=== PATIENT | male | born 1975 | race Caucasian/White ===

== ENCOUNTER 2017-04-17 17:32 | Emergency (ER) | payer OTHER ==
[~2017-04-17] VITALS: Ht 190.5 cm; Wt 134.5 kg
[2017-04-17 17:47] VITALS: Ht 190.5 cm; Wt 134.5 kg
[2017-04-17] MEDS ORDERED: FENTANYL CITRATE INJ 50 MCG/1 ML 2 ML VIAL IV ONE (18:30)
--- NOTE | 2017-04-17 18:56 | EMERGENCY ROOM VISIT NOTE ---
History First contact with patient: 18:10 Chief Complaint: INFECTION Stated Complaint: CELLULTIS INFECTION IN RT HAND- PHYSICIAN REFERRED Nursing Triage Summary: Patient states he started with right hand pain and swelling and redness starting yesterday. Seen by PCP and sent for evaluation. Currently on levaquin started yesterday. History of Present Illness The patient is a 41 year old male who presents to the Emergency Room with complaints of right hand swelling, redness, and pain for the past 2 days. Patient states his symptoms started shortly after scraping his hand on a car at work. He spoke on the phone yesterday with his PCP, who started him on Levaquin , he has taken 2 doses of this. He saw his PCP today to be evaluated, who sent him to ED for further evaluation and treatment of his hand cellulitis. Patient reports that his pain and swelling of his right hand have been getting worse since yesterday, started in just the fifth finger over the knuckle and has been spreading over the entire top of the hand. Patient reports history of previous cellulitis in the past, state he is prone to infections due to his diabetes. He is right hand dominant. He denies any fevers or chills, headaches, neck pain , chest pain, shortness of breath, dizziness or syncope, abdominal pain, nausea or vomiting, diarrhea, urinary symptoms, or rash. Review of Systems A complete 10 point review of systems was reviewed with the patient with pertinent positives and negatives as per history of present illness. All else were negative. Past Medical/Surgical History Diabetes mellitus type 2, hypertension, hypercholesterolemia, depression Social History Smoking Status: Never Smoker Drug Use: none Marital Status: Housing Status: lives with significant other Occupation Status: employed Current/Historical Medications Scheduled Clindamycin Hcl (Cleocin), 300 MG PO QID Insulin Glargine (Toujeo Solostar), 40 UNITS SC QPM Lamotrigine (Lamictal), 150 MG PO QAM Levofloxacin (Levaquin), Unknown Dose PO DAILY Lisinopril (Lisinopril), 5 MG PO DAILY Metformin Hcl (Glucophage Ext Rel), 1,000 MG PO BID Sertraline (Zoloft), 50 MG PO QAM Simvastatin (Zocor), 10 MG PO HS Allergies Reviewed in chart Physical Exam Vital Signs Date Time Temp Pulse Resp B/P (MAP) Pulse Ox O2 Delivery O2 Flow Rate FiO2 04/17/17 22:36 84 16 136/92 96 04/17/17 21:59 86 16 142/92 96 Room Air 04/17/17 20:16 36.4 79 16 132/96 96 Room Air 04/17/17 19:04 85 16 137/84 95 Room Air 04/17/17 17:47 36.7 86 16 126/92 96 Room Air Physical Exam CONSTITUTIONAL: Pleasant and cooperative. No acute distress. Nontoxic appearing. Well appearing and well nourished. HEENT: Normocephalic, atraumatic. Pupils equal, round and reactive to light, EOMI. TMs normal. Pharynx normal. Moist mucous membranes. NECK: Supple, full active range of motion without discomfort. RESPIRATORY: Clear to auscultation bilaterally with no wheezing, crackles, rhonchi or stridor. Equal expansion bilaterally. CARDIOVASCULAR: Regular rate and rhythm with no murmurs, rubs or gallops. Normal peripheral perfusion. No edema. GASTROINTESTINAL: Soft, nontender, nondistended. No palpable masses or HSM. Bowel sounds present in all quadrants. MUSCULOSKELETAL: The right hand is erythematous, warm to the touch, tender to palpation, moderately swollen, most significant over the fourth and fifth MCP joints and dorsum of the hand. Mild pain with passive flexion/extension of the fingers. No fluctuance palpable. There is an abrasion over the right fifth knuckle, no drainage noted. Full range of motion of all joints without discomfort. INTEGUMENTARY: No rash or other significant dermatologic conditions noted. NEUROLOGIC: Alert and oriented X 4 with normal affect. Normal speech. No focal neurologic deficits noted. Normal gait observed. Medical Decision & Procedures Laboratory Results 04/17/17 18:45 Red Blood Count 4.78, Mean Corpuscular Volume 87.7, Mean Corpuscular Hemoglobin 30.8, Mean Corpuscular Hemoglobin Concent 35.1, Mean Platelet Volume 10.8, Neutrophils (%) (Auto) 60.1, Lymphocytes (%) (Auto) 27.9, Monocytes (%) (Auto) 10.1, Eosinophils (%) (Auto) 1.1, Basophils (%) (Auto) 0.4, Neutrophils # (Auto ) 3.39, Lymphocytes # (Auto) 1.57, Monocytes # (Auto) 0.57, Eosinophils # (Auto ) 0.06, Basophils # (Auto) 0.02 04/17/17 18:45 Test 04/17/17 18:45 White Blood Count 5.63 K/uL (4.8-10.8) Red Blood Count 4.78 M/uL (4.7-6.1) Hemoglobin 14.7 g/dL (14.0-18.0) Hematocrit 41.9 % (42-52) Mean Corpuscular Volume 87.7 fL (80-100) Mean Corpuscular Hemoglobin 30.8 pg (25-34) Mean Corpuscular Hemoglobin Concent 35.1 g/dl (32-36) Platelet Count 199 K/uL (130-400) Mean Platelet Volume 10.8 fL (7.4-10.4) Neutrophils (%) (Auto) 60.1 % Lymphocytes (%) (Auto) 27.9 % Monocytes (%) (Auto) 10.1 % Eosinophils (%) (Auto) 1.1 % Basophils (%) (Auto) 0.4 % Neutrophils # (Auto) 3.39 K/uL (1.4-6.5) Lymphocytes # (Auto) 1.57 K/uL (1.2-3.4) Monocytes # (Auto) 0.57 K/uL (0.11-0.59) Eosinophils # (Auto) 0.06 K/uL (0-0.5) Basophils # (Auto) 0.02 K/uL (0-0.2) RDW Standard Deviation 40.4 fL (36.4-46.3) RDW Coefficient of Variation 12.5 % (11.5-14.5) Immature Granulocyte % (Auto) 0.4 % Immature Granulocyte # (Auto) 0.02 K/uL (0.00-0.02) Erythrocyte Sedimentation Rate 21 mm/hr (0-14) Anion Gap 8.0 mmol/L (3-11) Est Creatinine Clear Calc Drug Dose 178.8 ml/min Estimated GFR () 129.1 Estimated GFR (Non- 111.4 BUN/Creatinine Ratio 19.0 (10-20) Lactic Acid Level 1.4 mmol/L (0.4-2.0) Calcium Level 9.1 mg/dl (8.5-10.1) Total Bilirubin 0.3 mg/dl (0.2-1) Aspartate Amino Transf (AST/SGOT) 8 U/L (15-37) Alanine Aminotransferase (ALT/SGPT) 26 U/L (12-78) Alkaline Phosphatase 55 U/L (45-117) C-Reactive Protein 0.52 mg/dl (0-0.29) Total Protein 7.5 gm/dl (6.4-8.2) Albumin 3.6 gm/dl (3.4-5.0) Globulin 3.9 gm/dl (2.5-4.0) Albumin/Globulin Ratio 0.9 (0.9-2) Beta-Hydroxybutyric Acid 0.83 mg/dL (0.2-2.81) Medications Administered Medications (Trade) Dose Ordered Sig/Zenia Route Start Time Stop Time Status Last Admin Dose Admin Fentanyl Citrate (Fentanyl Inj) 50 mcg NOW ONCE IV 04/17/17 18:30 04/17/17 18:31 DC 04/17/17 18:45 50 MCG Ampicillin Sodium/ Sulbactam Sodium 3000 mg/Sodium Chloride 108 ml @ 200 mls/hr ONE ONCE IV 04/17/17 20:30 04/17/17 21:02 DC 04/17/17 20:47 200 MLS/HR Acetaminophen/ Hydrocodone Bitart ([place] 5/325 Tab) 1 tab NOW STAT PO 04/17/17 20:25 04/17/17 20:26 DC 04/17/17 20:47 1 TAB Clindamycin HCl (Cleocin Cap) 300 mg NOW STAT PO 04/17/17 22:26 04/17/17 22:28 DC 04/17/17 22:32 300 MG Medical Decision CC: Patient presenting with complaint of right hand cellulitis Interpretation of Labs: No leukocytosis, no anemia, hyperglycemia, no other significant electrolyte abnormalities, normal renal function, normal liver enzymes. Mildly elevated inflammatory markers. Lactic acid within normal limits. Negative serum ketones. Differential Diagnosis: Includes, but not limited to cellulitis, gout, abscess, osteomyelitis, tenosynovitis, among others. Medication Reconciliation: I attest that I have personally reviewed the patient' s current medication list. Vital signs review: I reviewed the patient's vital signs and interpret them as follows: T: Afebrile; BP: Normotensive; HR: Within normal limits; RR: Within normal limits; Pulse Ox: Within normal limits on room air. Blood pressure screening: The patient was found to have normal blood pressure on screening and does not require follow-up for repeat blood pressure check. Summary: Patient was evaluated at bedside, history and physical exam performed. Patient is alert and oriented, in no acute distress and nontoxic appearing, resting comfortably in the stretcher. There is moderate swelling, redness, tenderness and warmth of the right hand, mild abrasion over the right fifth knuckle. There is no streaking, there is no crepitus, neurovascularly intact. Pain with flexion or extension of the fingers. I do not suspect tenosynovitis at this time. Orders were placed at bedside for labs, IV Unasyn, x-ray of the hand to evaluate for osteomyelitis. Patient discussed with Dr. Clinton, who agrees with my assessment and plan. Labs reviewed as above, no significant abnormalities. No evidence of DKA. No concern for severe infection. X-ray of the right hand shows swelling consistent with cellulitis, no evidence of osteomyelitis. I'm concerned that there is not adequate coverage for cellulitis with Levaquin, will add clindamycin for broader coverage, and continue the Levaquin for pseudomonal coverage. Patient reassessed multiple times throughout ED stay, he reports that his hand pain is somewhat improved. He was updated on all results and plan for discharge, and encouraged to follow closely with his primary care provider for ongoing management of his hand cellulitis. Patient was given first dose of clindamycin and an Rx was sent to pharmacy. He was also given strict return precautions should his symptoms worsen, he verbalized understanding. Patient was discharged home in stable condition and inability. Impression Primary Impression: Cellulitis of right hand Departure Information Dispostion Home / Self-Care Condition GOOD Prescriptions Clindamycin Hcl (CLEOCIN) 300 Mg Cap 300 MG PO QID for 10 Days, #40 CAP Prov: Medina Connor CRNP 04/17/17 Referrals Matthias Gaytan PA-C (PCP) Patient Instructions ED Infec Skin Cellulitis, My [facility] Additional Instructions You were seen in the Emergency Department for cellulitis of your right hand. You have been prescribed clindamycin to be taken 4 times a day for 10 days. This is an antibiotic to treat your infection. All antibiotics have the potential to cause diarrhea/stomach upset, you should eat yogurt daily or take a daily probiotic to help prevent this. Stop this medication and contact a medical provider if you were to develop any significant adverse side effects including: wheezing, shortness of breath, passing out, vomiting, or a diffuse rash. Always take antibiotics as directed and COMPLETE the ENTIRE course regardless of the improvement of your symptoms. Continue your prescribed Levaquin as directed by her primary care provider until the course is complete. Look for signs of worsening infection of the wound including: increased pain, redness, swelling, foul discharge, streaking, or fevers/chills/feeling ill. If any of these are noticed you should return to the Emergency Department for further assessment and treatment. For pain control, you can use the following [id number] medicines (if >12 yo): - Extra strength (500mg/tab) Tylenol (acetaminophen) 1-2 tabs every 6-8 hours as needed. Do not exceed 6 tablets in a 24 hour period. Avoid taking more than 3 grams (3000 mg) of Tylenol per day. This includes any other sources of acetaminophen you may take on a regular basis. - Regular strength (200 mg/tab) Advil (ibuprofen) 3 tabs every 6 hours as needed. Do not exceed a dose of 2400 mg per day. Apply warm compresses to the area to help with pain and also to help improve the infection. Follow up with your PCP in 1-2 days for recheck, or sooner for worsening symptoms. Return to the emergency department if your symptoms worsen despite treatment course outlined above. Work Instructions Return To Work: 2 days
--- NOTE | 2017-04-17 18:58 | DIAGNOSTIC IMAGING REPORT ---
R HAND MIN 3 VIEWS ROUTINE CLINICAL HISTORY: right hand cellulitis, eval osteo pain. Infection. COMPARISON: None. DISCUSSION: Considerable soft tissue edematous change dorsal and dorsal lateral to the metacarpals and proximal phalanges. No acute bony abnormality. Cortical margins are intact. There is no bony erosive process. IMPRESSION: Soft tissue edema. No acute bony abnormality. The above report was generated using voice recognition software. It may contain grammatical, syntax or spelling errors. Electronically signed by: Des Maxwell M.D. 04/17/2017 6:57 PM Dictated Date/Time: 04/17/2017 6:56 PM
[2017-04-17 19:21] LABS: ALBUMIN 3.6 gm/dl (3.4-5.0); CALCIUM 9.1 mg/dl (8.5-10.1); CREATININE 0.82 mg/dl (0.60-1.40)
[2017-04-17 19:23] LABS: BASO % 0.4 %; BASO ABS # 0.02 K/uL (0-0.2); EOS % 1.1 %; EOS ABS # 0.06 K/uL (0-0.5); HEMATOCRIT 41.9 % (42-52); HEMOGLOBIN 14.7 g/dL (14.0-18.0); IG# 0.02 K/uL (0.00-0.02); LYMPH % 27.9 %; LYMPH ABS # 1.57 K/uL (1.2-3.4); MEAN CELL VOLUME 87.7 fL (80-100); MEAN CORPUSCULAR HEMOGLOBIN 30.8 pg (25-34); MEAN CORPUSCULAR HGB CONC 35.1 g/dl (32-36); MEAN PLATELET VOLUME 10.8 fL (7.4-10.4); MONO % 10.1 %; MONO ABS # 0.57 K/uL (0.11-0.59); NEUT % 60.1 %; NEUT ABS # 3.39 K/uL (1.4-6.5); PLATELET COUNT 199 K/uL (130-400); RED CELL DISTRIBUTION WIDTH CV 12.5 % (11.5-14.5); RED CELL DISTRIBUTION WIDTH SD 40.4 fL (36.4-46.3); WHITE BLOOD COUNT 5.63 K/uL (4.8-10.8)
[2017-04-17 19:24] LABS: TOTAL PROTEIN 7.5 gm/dl (6.4-8.2)
[2017-04-17 20:16] VITALS: TEMP 36.4
[2017-04-17] MEDS ORDERED: HYDROCODONE/ACETAMOPHEN 5/325MG TAB PO STA (20:25)
[2017-04-17] MEDS ORDERED: CLIN300C2 PO (20:25)
[2017-04-17] MEDS ORDERED: AMPICILLIN/SULBACTAM SOD INJ 3,000 MG in SODIUM CHLORIDE 0.9% 100ML 100 ML IV ONE (20:30)
[2017-04-17] MEDS ORDERED: CLINDAMYCIN HCL 150 MG CAP PO STA (22:26)
[2017-04-17 22:36] VITALS: BP 136/92; PULSE 84; O2SAT 96
[2017-04-20] MEDS ORDERED: METF1TAB53 PO (18:35)
[2017-04-20] MEDS ORDERED: LSN5 PO (18:35)
[2017-04-20] MEDS ORDERED: INSU1.2I SC (18:35)
[2017-04-20] MEDS ORDERED: SIMV10TA2 PO (18:35)
[2017-04-20] MEDS ORDERED: LEVO-366 PO (18:35)
[2017-04-20] MEDS ORDERED: LAMO150T PO (18:40)
[2017-04-20] MEDS ORDERED: SERT50TA PO (18:40)
== END 2017-04-17 22:35 | disposition home or self-care (01) ==
LOC: C.EDB 17:34 → C.EDC 22:35
DX: L03.113 Cellulitis of right upper limb (principal); E11.9 Type 2 diabetes mellitus without complications; I10 Essential (primary) hypertension; E78.00 Pure hypercholesterolemia, unspecified; F32.9 Major depressive disorder, single episode, unspecified; Z79.4 Long term (current) use of insulin; Z79.899 Other long term (current) drug therapy

== ENCOUNTER 2017-04-20 22:05 | Inpatient (IN) | payer OTHER ==
[~2017-04-20] VITALS: Ht 190.5 cm; Wt 134.4 kg
[~2017-04-20 22:05] MED LIST: CLIN300C2 PO; INSU1.2I SC; LAMO150T PO; LEVO-366 PO; LSN5 PO; METF1TAB53 PO; SERT50TA PO; SIMV10TA2 PO
[2017-04-20] MEDS ORDERED: VANCOMYCIN INJ 1,000 MG in SODIUM CHLORIDE 0.9% 250ML 250 ML IV STA (22:33)
[2017-04-20] MEDS ORDERED: SODIUM CHLORIDE 0.9% 1000ML 1,000 ML IV ONE (22:45)
[2017-04-20 23:17] LABS: BASO % 0.3 %; BASO ABS # 0.02 K/uL (0-0.2); EOS % 0.9 %; EOS ABS # 0.06 K/uL (0-0.5); HEMATOCRIT 38.7 % (42-52); HEMOGLOBIN 13.6 g/dL (14.0-18.0); IG# 0.03 K/uL (0.00-0.02); LYMPH % 30.9 %; LYMPH ABS # 2.01 K/uL (1.2-3.4); MEAN CELL VOLUME 86.8 fL (80-100); MEAN CORPUSCULAR HEMOGLOBIN 30.5 pg (25-34); MEAN CORPUSCULAR HGB CONC 35.1 g/dl (32-36); MEAN PLATELET VOLUME 10.3 fL (7.4-10.4); MONO % 9.4 %; MONO ABS # 0.61 K/uL (0.11-0.59); NEUT ABS # 3.78 K/uL (1.4-6.5); PLATELET COUNT 196 K/uL (130-400); RED CELL DISTRIBUTION WIDTH CV 12.3 % (11.5-14.5); RED CELL DISTRIBUTION WIDTH SD 39.2 fL (36.4-46.3); WHITE BLOOD COUNT 6.51 K/uL (4.8-10.8)
[2017-04-20] MEDS ORDERED: KETOROLAC TROMETHAMINE 30 MG/ML VIAL IV STA (23:19)
[2017-04-20] MEDS ORDERED: HYDROmorphone INJ 0.5 MG/0.5 ML SYR IV STA (23:28)
[2017-04-20] MEDS ORDERED: MoRPHine SULFATE 4 MG/ML 1 ML CARP\\VIAL IV ONE (23:30)
[2017-04-20 23:34] LABS: ALBUMIN 3.3 gm/dl (3.4-5.0); CALCIUM 8.9 mg/dl (8.5-10.1); CREATININE 0.74 mg/dl (0.60-1.40); POTASSIUM 3.9 mmol/L (3.5-5.1)
[2017-04-20 23:37] LABS: TOTAL PROTEIN 7.1 gm/dl (6.4-8.2)
[2017-04-21] MEDS ORDERED: INSULIN ASPART 100 UNITS/ML 3 ML PEN SC ONE (01:30)
[2017-04-21] MEDS ORDERED: MAGNESIUM HYDROXIDE SUSP 30 ML UDC PO PRN (01:30)
[2017-04-21] MEDS ORDERED: ONDANSETRON INJ 2 MG/ML 2 ML VIAL IV PRN (01:30)
[2017-04-21] MEDS ORDERED: ACETAMINOPHEN 325 MG TAB PO PRN (01:30)
[2017-04-21] MEDS ORDERED: ALUMINUM/MAGNESIUM/SIMETH (MAALOX MAX) 30 ML UDC PO PRN (01:30)
[2017-04-21] MEDS ORDERED: ACETAMINOPHEN IV 650 MG in EMPTY BAG 0 ML IV PRN (01:30)
[2017-04-21] MEDS ORDERED: OXYCODONE HCL IR 5 MG TAB (IMMEDIATE RELEASE) PO PRN (01:30)
[2017-04-21] MEDS ORDERED: ZOLPIDEM TARTRATE 5 MG TAB PO PRN (01:30)
[2017-04-21] MEDS ORDERED: POLYETHYLENE (MIRALAX) 17 GM PACK PO PRN (01:30)
--- NOTE | 2017-04-21 02:02 | History and Physical ---
History & Physical Date & Time of Service: Apr 21, 2017 at 01:45 Chief Complaint: Cellulitis R Hand, Revisit From Th Night Primary Care Physician: Maryuri Doctor, Assigned History of Present Illness Source: patient, hospital records This is a 41 yo m with poorly controlled DM ( diagnosed in 1999 after suffering from DKA) presenting to us with possibly worsening cellulitis. The patient notes he had a scratch on his right fifth knuckle which he "wouldn't leave alone ". He then noticed worsening pain and swelling over the fifth and fourth knuckles which worsened over a 48 hour period. He called his physician which empirically placed him on levaquin and he followed up with the PCP the following day. As there was significant cellulitis and concern for osteomyelitis the patient was recommended for direct by PCP but refused and went to ED for evaluation. He received a dose of unasyn and was d/c with continued Levaquin and added Clindamycin. This ED visit was 04/17/16. Today the patient notes he has had progressive worsening of the erythema where it is now extending to the volar aspect of the wrist and making it difficult to close his hand in a fist. The pain is currently a 5/10 and an ache. Non radiating. No chest pain, SOB, fever, polyuria or polydipsia. Recently had an A1C which was 11.3%. He refused morphine and Toradol in the ED stating that it was "not enough to cover my pain, can't you create a new concoction," to the RN. 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) Immunizations History of Influenza Vaccine: Unknown History of Tetanus Vaccine?: Unknown History of Pneumococcal: Unknown History of Hepatitis B Vaccine: Unknown Multi-Drug Resistant Organisms History of MDRO: No Allergies Coded Allergies: Cephalexin (Verified Allergy, Unknown, HAPPENED A CHILD, 04/17/17) Home Medications Scheduled Clindamycin Hcl (Cleocin), 300 MG PO QID Insulin Glargine (Toujeo Solostar), 40 UNITS SC QPM Lamotrigine (Lamictal), 150 MG PO QAM Levofloxacin (Levaquin), 1 TAB PO DAILY Lisinopril (Lisinopril), 5 MG PO DAILY Metformin Hcl (Glucophage Ext Rel), 1,000 MG PO BID Sertraline (Zoloft), 50 MG PO QAM Simvastatin (Zocor), 10 MG PO HS Review of Systems Constitutional: No fever Eyes: No worsening of vision ENT: No hearing loss Respiratory: No cough, No sputum, No wheezing, No shortness of breath, No dyspnea on exertion, No dyspnea at rest Cardiovascular: No chest pain Abdomen: + diarrhea, No pain, No nausea, No vomiting, No constipation Musculoskeletal: + joint pain, + muscle pain, + swelling Genitourinary - Male: No hematuria, No dysuria Neurologic: No weakness, No numbness/tingling, No balance problems Psychiatric: No depression symptoms Endocrine: No fatigue Hematologic / Lymphatic: No abnormal bleeding/bruising Integumentary: No rash Physical Exam Vital Signs Date Time Temp Pulse Resp B/P (MAP) Pulse Ox O2 Delivery O2 Flow Rate FiO2 04/21/17 01:40 87 18 113/74 96 Room Air 04/20/17 22:08 36.7 103 19 149/101 96 Room Air General Appearance: no apparent distress Head: normocephalic, atraumatic Eyes: normal inspection ENT: normal ENT inspection, + pertinent finding (poor dentition) Neck: supple Respiratory/Chest: normal breath sounds, no respiratory distress, no accessory muscle use Cardiovascular: regular rate, rhythm, no murmur, normal peripheral pulses Abdomen/GI: normal bowel sounds, non tender, soft Back: normal inspection, no CVA tenderness, normal range of motion Extremities/Musculoskelatal: no calf tenderness, no pedal edema, normal range of motion (except for limited ROM of right wrist and hand secondary to swelling) , + swelling (right volar aspect of the hand and extends to the right volar wrist) Neurologic/Psych: alert, normal mood/affect, normal reflexes, oriented x 3 Skin: normal color, warm/dry, no rash Lymphatic: no adenopathy Diagnostics Laboratory Results Results Past 24 Hours Test 04/20/17 23:00 04/20/17 23:02 Range/Units White Blood Count 6.51 4.8-10.8 K/uL Red Blood Count 4.46 4.7-6.1 M/uL Hemoglobin 13.6 14.0-18.0 g/dL Hematocrit 38.7 42-52 % Mean Corpuscular Volume 86.8 80-100 fL Mean Corpuscular Hemoglobin 30.5 25-34 pg Mean Corpuscular Hemoglobin Concent 35.1 32-36 g/dl Platelet Count 196 130-400 K/uL Mean Platelet Volume 10.3 7.4-10.4 fL Neutrophils (%) (Auto) 58.0 % Lymphocytes (%) (Auto) 30.9 % Monocytes (%) (Auto) 9.4 % Eosinophils (%) (Auto) 0.9 % Basophils (%) (Auto) 0.3 % Neutrophils # (Auto) 3.78 1.4-6.5 K/uL Lymphocytes # (Auto) 2.01 1.2-3.4 K/uL Monocytes # (Auto) 0.61 0.11-0.59 K/uL Eosinophils # (Auto) 0.06 0-0.5 K/uL Basophils # (Auto) 0.02 0-0.2 K/uL RDW Standard Deviation 39.2 36.4-46.3 fL RDW Coefficient of Variation 12.3 11.5-14.5 % Immature Granulocyte % (Auto) 0.5 % Immature Granulocyte # (Auto) 0.03 0.00-0.02 K/uL Sodium Level 132 136-145 mmol/L Potassium Level 3.9 3.5-5.1 mmol/L Chloride Level 101 98-107 mmol/L Carbon Dioxide Level 24 21-32 mmol/L Anion Gap 8.0 3-11 mmol/L Blood Urea Nitrogen 14 7-18 mg/dl Creatinine 0.74 0.60-1.40 mg/dl Est Creatinine Clear Calc Drug Dose 198.0 ml/min Estimated GFR () 134.7 Estimated GFR (Non- 116.2 BUN/Creatinine Ratio 19.0 10-20 Random Glucose 348 70-99 mg/dl Uric Acid 3.0 2.6-7.2 mg/dl Calcium Level 8.9 8.5-10.1 mg/dl Total Bilirubin 0.2 0.2-1 mg/dl Aspartate Amino Transf (AST/SGOT) 8 15-37 U/L Alanine Aminotransferase (ALT/SGPT) 26 12-78 U/L Alkaline Phosphatase 58 45-117 U/L C-Reactive Protein 0.61 0-0.29 mg/dl Total Protein 7.1 6.4-8.2 gm/dl Albumin 3.3 3.4-5.0 gm/dl Globulin 3.8 2.5-4.0 gm/dl Albumin/Globulin Ratio 0.9 0.9-2 Beta-Hydroxybutyric Acid 0.68 0.2-2.81 mg/dL Bedside Lactic Acid Venous 1.65 0.90-1.70 mmol/L Microbiology Results 04/20/17 Blood Culture, Received Pending 04/20/17 Blood Culture, Received Pending Impression Assessment and Plan This is a 41 yo m with a h/o poorly controlled DM here for failure of outpt mx of cellulitis of right hand Cellulitis of right hand/ wrist- possible gout? vs infectious process - Zosyn and vanco cont - med surg admission - CBC in am - Blood cx pending - uric acid pending however will defer aspiration of joint at this time - pain control with hydrocodone q6h and tylenol Diarrhea/ new onset after abx - c diff pending DMII, poorly controlled - HBA1C - Dm education consult- discuss potential candidate for pump- GIL? - Lantus 40 units PM - insulin ISS BSG Ac HS - metformin held Hyperlipidemia - Continue Simvastatin 10 mg daily - FLP HTN - Continue Lisinopril 5 mg daily Bipolar disorder - continue zoloft 50 mg and lamotrigine 150 gm daily DVT Prophylaxis - heparin bid full code Attending addendum: I have physically seen this patient, have supervised the medical residents activities, and agree with the H&P unless as otherwise noted. Assessment and Plan: Right hand cellulitis/failure of outpatient management-- Admitted to medical surgical floor. Vancomycin IV and Zosyn IV X-ray is not suggestive of osteomyelitis or erosive arthritis Blood cultures pending Uric acid level Tylenol for mild pain or temperature, [place] for moderate severe pain Diarrhea/antibiotic use-- Check C. difficile Add probiotics Diabetes mellitus, poorly controlled-- Check hemoglobin A1c Continue Lantus 40 units subcutaneous every evening Place on Accu-Cheks before meals and at bedtime with NovoLog coverage per scale Hold metformin Hyperlipidemia-- Continue simvastatin 10 mg daily Check a fasting lipid panel Level of Care Med/Surg Advanced Directives Existing Advance Directive: No Existing Living Will: No Existing Power of Steward/Stewardess Deck: No Resuscitation Status FULL RESUSCITATION VTE Prophylaxis VTE Risk Assessment Done? Y/N: Yes Risk Level: Moderate Given or contraindicated: Unfractionated heparin SQ Social Service Consult None Apply Note Total Time: Critical Care 30 - 74 minutes
[2017-04-21] MEDS ORDERED: PIPERACILL/TAZOBAC IV 4.5 GM in DEXTROSE 5% 100ML IV ONE (03:00)
[2017-04-21] MEDS: HYDROCODONE/ACETAMI 10/325 TAB PO PRN ×4 (03:02→21:30)
[2017-04-21] MEDS ORDERED: IV FLUIDS COMPLETED PRN (04:00)
[2017-04-21] MEDS ORDERED: VANCOMYCIN INJ 2,250 MG in SODIUM CHLORIDE 0.9% 500ML 500 ML IV SCH (04:00)
[2017-04-21 04:04] VITALS: BP 136/89; PULSE 74; TEMP 36.8; O2SAT 97; BMI 37.0
[2017-04-21] MEDS: INSULIN ASPART 100 UNITS/ML 3 ML PEN SC SCH ×5 (04:24→21:22)
[2017-04-21] MEDS ORDERED: PIPERACILL/TAZOBAC IV 3.375 GM in DEXTROSE 5% 100ML 100 ML IV SCH (06:00)
--- NOTE | 2017-04-21 06:32 | DIAGNOSTIC IMAGING REPORT ---
R HAND MIN 3 VIEWS ROUTINE CLINICAL HISTORY: right hand infx trauma. Pain. COMPARISON: 04/17/2017 DISCUSSION: Soft tissue edema is similar compared to the prior study. No well-defined acute bony abnormality. Cortical margins are intact. IMPRESSION: Persistent soft tissue edema. No acute bony abnormality. The above report was generated using voice recognition software. It may contain grammatical, syntax or spelling errors. Electronically signed by: Des Maxwell M.D. 04/21/2017 6:30 AM Dictated Date/Time: 04/21/2017 6:29 AM
[2017-04-21 07:19] VITALS: BP 128/82; PULSE 70; TEMP 36.7; O2SAT 97
--- NOTE | 2017-04-21 08:06 | Family Medicine Progress Note ---
Progress Note Date of Service Apr 21, 2017. Subjective Pt evaluation today including: conversation w/ patient, conversation w/ family , physical exam, chart review, lab review, review of studies, conversation w/ senior professional services consultant, review of inpatient medication list Patient well, denies acute overnight events. Complaining of ongoing tenderness and tingling in the 4th and 5th knuckles of the right hand as well pain in the right wrist. He states there was never a significant amount of redness, and he hasn't noted any discharge. He admits he has had Cellulitis in the past, but has never experienced tingling. He states his sugars are managed by his PCP, and has never seen an sign language interpreter. He states compliance with his meds. He otherwise denies fevers/chills, headaches, CP, palpitations, dyspnea, abdominal pain, hand swelling or rashes. He is tolerating diet, ambulating without issue, and voiding and stooling appropriately. ROS is unremarkable except as noted above. Objective Vital Signs Date Time Temp Pulse Resp B/P (MAP) Pulse Ox O2 Delivery O2 Flow Rate FiO2 04/21/17 07:19 36.7 70 17 128/82 (97) 97 Room Air 04/21/17 04:44 Room Air 04/21/17 04:04 36.8 74 16 136/89 97 Room Air 04/21/17 01:40 87 18 113/74 96 Room Air 04/20/17 22:08 36.7 103 19 149/101 96 Room Air Physical Exam General Appearance: WD/WN, no apparent distress Eyes: normal inspection ENT: hearing grossly normal Respiratory/Chest: lungs clear, normal breath sounds, no respiratory distress, no accessory muscle use Cardiovascular: regular rate, rhythm, no edema, no murmur Abdomen: normal bowel sounds, non tender, soft Extremities: non-tender, normal inspection, no pedal edema, + pertinent finding (tenderness of 4th and 5th MCP and right wrist. Inability to flex right ring and pinky finger fully. Pain on wrist flexion.) Neurologic/Psychiatric: no motor/sensory deficits, alert, normal mood/affect, oriented x 3 Skin: normal color, warm/dry, no rash, + pertinent finding (Scabs on right 5th MCp, no significant erythema, premarked border devoid of swelling or discolouration.) Laboratory Results Results Past 24 Hours Test 04/20/17 23:00 04/20/17 23:02 04/21/17 02:41 04/21/17 05:26 Range/Units White Blood Count 6.51 4.8-10.8 K/uL Red Blood Count 4.46 4.7-6.1 M/uL Hemoglobin 13.6 14.0-18.0 g/dL Hematocrit 38.7 42-52 % Mean Corpuscular Volume 86.8 80-100 fL Mean Corpuscular Hemoglobin 30.5 25-34 pg Mean Corpuscular Hemoglobin Concent 35.1 32-36 g/dl Platelet Count 196 130-400 K/uL Mean Platelet Volume 10.3 7.4-10.4 fL Neutrophils (%) (Auto) 58.0 % Lymphocytes (%) (Auto) 30.9 % Monocytes (%) (Auto) 9.4 % Eosinophils (%) (Auto) 0.9 % Basophils (%) (Auto) 0.3 % Neutrophils # (Auto) 3.78 1.4-6.5 K/uL Lymphocytes # (Auto) 2.01 1.2-3.4 K/uL Monocytes # (Auto) 0.61 0.11-0.59 K/uL Eosinophils # (Auto) 0.06 0-0.5 K/uL Basophils # (Auto) 0.02 0-0.2 K/uL RDW Standard Deviation 39.2 36.4-46.3 fL RDW Coefficient of Variation 12.3 11.5-14.5 % Immature Granulocyte % (Auto) 0.5 % Immature Granulocyte # (Auto) 0.03 0.00-0.02 K/uL Sodium Level 132 136-145 mmol/L Potassium Level 3.9 3.5-5.1 mmol/L Chloride Level 101 98-107 mmol/L Carbon Dioxide Level 24 21-32 mmol/L Anion Gap 8.0 3-11 mmol/L Blood Urea Nitrogen 14 7-18 mg/dl Creatinine 0.74 0.60-1.40 mg/dl Est Creatinine Clear Calc Drug Dose 198.0 ml/min Estimated GFR () 134.7 Estimated GFR (Non- 116.2 BUN/Creatinine Ratio 19.0 10-20 Random Glucose 348 70-99 mg/dl Uric Acid 3.0 2.6-7.2 mg/dl Calcium Level 8.9 8.5-10.1 mg/dl Total Bilirubin 0.2 0.2-1 mg/dl Aspartate Amino Transf (AST/SGOT) 8 15-37 U/L Alanine Aminotransferase (ALT/SGPT) 26 12-78 U/L Alkaline Phosphatase 58 45-117 U/L C-Reactive Protein 0.61 0-0.29 mg/dl Total Protein 7.1 6.4-8.2 gm/dl Albumin 3.3 3.4-5.0 gm/dl Globulin 3.8 2.5-4.0 gm/dl Albumin/Globulin Ratio 0.9 0.9-2 Beta-Hydroxybutyric Acid 0.68 0.2-2.81 mg/dL Bedside Lactic Acid Venous 1.65 0.90-1.70 mmol/L Bedside Glucose 299 70-99 mg/dl Prothrombin Time 10.3 9.0-12.0 SECONDS Prothromb Time International Ratio 1.0 0.9-1.1 Test 04/21/17 08:10 04/21/17 11:59 Range/Units Bedside Glucose 249 207 70-99 mg/dl Microbiology Results 04/20/17 Blood Culture, Received Pending 04/20/17 Blood Culture, Received Pending Assessment and Plan 41 year old male with a h/o poorly controlled DM here for failure of outpt mx of cellulitis of right hand Cellulitis of right hand/ wrist- possible gout? vs infectious process - CXR shows no evidence of osteomyelitis. Uric acid WNL. - Continue Zosyn. Vanco discontinued. - Blood cx pending - Pain control with [place] and Tylenol Diarrhea/ new onset after abx - c diff pending collection - patient has not had any BM since admission, thus low suspicion for c.diff DMII, poorly controlled - ?query late-onset autoimmune diabetes - adult onset - Continue Lantus 40 units qHS, metformin held - ISS with BGS ac/hs - recheck HBA1C - DM education consult - discuss potential candidacy for pump Hyperlipidemia - Continue Simvastatin 10 mg daily - FLP HTN - Continue Lisinopril 5 mg daily Bipolar disorder - Continue Zoloft 50 mg and lamotrigine 150 gm daily DVT Prophylaxis - Heparin q12h Full code Continued [facility] stay due to: multiple IV medications needed Discharge planning: home Resident Tracking Resident Involvement: Resident Care Provided Care Provided: Adult Hospital Medicine Reviewed: Pt Seen/Exam by Me History Pt feels that the redness is much improved, however he feels the swelling around his thumb is increased. Ongoing pain and tingling. Pt is tolerating PO without issue. No chest pain or SOB. No fevers. Informs me that on 04/19 he heated a [place] pin "until it was red hot" and pierced an area of pressure around the knuckle of his 2nd digit. He was able to expel fluid and he did feel like the pressure improved, however it was after this that he felt like his sx were worse. Agree with HPI/ROS as noted by resident General Appearance: WD/WN, no apparent distress Respiratory: normal breath sounds, no respiratory distress Cardiovascular: normal peripheral pulses, regular rate, rhythm Gastrointestinal: non tender, soft Extremities: other (swelling noted on R hand near that thumb joint, TTP around the knuckles) Neurologic/Psychiatric: alert, normal mood/affect, oriented x 3 Skin Characteristics: warm/dry, other (redness is mostly resolved from marker lines) Assessment/Plan Agree with plan as outlined above R hand cellulitis: improving on vanco/zosyn d/c vanco today Monitor swelling No open wound to necessitate wound care at present DM educator in to see pt Glucometer and med changes
[2017-04-21 08:10] VITALS: O2SAT 97
[2017-04-21] MEDS: PIPERACILL/TAZOBAC IV 4.5 GM in DEXTROSE 5% 100ML IV SCH ×3 (08:15→23:58)
[2017-04-21] MEDS: SERTRALINE HCL 50 MG TAB PO SCH (08:52)
[2017-04-21] MEDS: LISINOPRIL 5 MG TAB PO SCH (08:52)
[2017-04-21] MEDS ORDERED: VANCOMYCIN INJ 1,000 MG in SODIUM CHLORIDE 0.9% 250ML 250 ML IV SCH (09:00)
--- NOTE | 2017-04-21 09:12 | Pharmacy Progress Note ---
Pharmacy Antibiotic Consult Date of Service: Apr 21, 2017. Pharmacy Dosing Scope Pharmacy is consulted to initiate vancomycin IV dosing therapy, order appropriate labs and adjust drug dose/frequency. Subjective The patient is a 41 year old male admitted on Apr 21, 2017 at 01:44. Objective Height (Feet): 6 Height (Inches): 3.00 Weight (Kilograms): 134.400 Lab Results (24hrs): Test 04/20/17 23:00 04/20/17 23:02 04/21/17 02:41 04/21/17 05:26 White Blood Count 6.51 K/uL (4.8-10.8) Red Blood Count 4.46 M/uL (4.7-6.1) Hemoglobin 13.6 g/dL (14.0-18.0) Hematocrit 38.7 % (42-52) Mean Corpuscular Volume 86.8 fL (80-100) Mean Corpuscular Hemoglobin 30.5 pg (25-34) Mean Corpuscular Hemoglobin Concent 35.1 g/dl (32-36) Platelet Count 196 K/uL (130-400) Mean Platelet Volume 10.3 fL (7.4-10.4) Neutrophils (%) (Auto) 58.0 % Lymphocytes (%) (Auto) 30.9 % Monocytes (%) (Auto) 9.4 % Eosinophils (%) (Auto) 0.9 % Basophils (%) (Auto) 0.3 % Neutrophils # (Auto) 3.78 K/uL (1.4-6.5) Lymphocytes # (Auto) 2.01 K/uL (1.2-3.4) Monocytes # (Auto) 0.61 K/uL (0.11-0.59) Eosinophils # (Auto) 0.06 K/uL (0-0.5) Basophils # (Auto) 0.02 K/uL (0-0.2) RDW Standard Deviation 39.2 fL (36.4-46.3) RDW Coefficient of Variation 12.3 % (11.5-14.5) Immature Granulocyte % (Auto) 0.5 % Immature Granulocyte # (Auto) 0.03 K/uL (0.00-0.02) Sodium Level 132 mmol/L (136-145) Potassium Level 3.9 mmol/L (3.5-5.1) Chloride Level 101 mmol/L (98-107) Carbon Dioxide Level 24 mmol/L (21-32) Anion Gap 8.0 mmol/L (3-11) Blood Urea Nitrogen 14 mg/dl (7-18) Creatinine 0.74 mg/dl (0.60-1.40) Est Creatinine Clear Calc Drug Dose 198.0 ml/min Estimated GFR () 134.7 Estimated GFR (Non- 116.2 BUN/Creatinine Ratio 19.0 (10-20) Random Glucose 348 mg/dl (70-99) Uric Acid 3.0 mg/dl (2.6-7.2) Calcium Level 8.9 mg/dl (8.5-10.1) Total Bilirubin 0.2 mg/dl (0.2-1) Aspartate Amino Transf (AST/SGOT) 8 U/L (15-37) Alanine Aminotransferase (ALT/SGPT) 26 U/L (12-78) Alkaline Phosphatase 58 U/L (45-117) C-Reactive Protein 0.61 mg/dl (0-0.29) Total Protein 7.1 gm/dl (6.4-8.2) Albumin 3.3 gm/dl (3.4-5.0) Globulin 3.8 gm/dl (2.5-4.0) Albumin/Globulin Ratio 0.9 (0.9-2) Beta-Hydroxybutyric Acid 0.68 mg/dL (0.2-2.81) Bedside Lactic Acid Venous 1.65 mmol/L (0.90-1.70) Bedside Glucose 299 mg/dl (70-99) Prothrombin Time 10.3 SECONDS (9.0-12.0) Prothromb Time International Ratio 1.0 (0.9-1.1) Test 04/21/17 08:10 Bedside Glucose 249 mg/dl (70-99) Micro Results: Date/Time Source Procedure Growth Status 04/20/17 22:35 Blood Blood Culture Pending Received 04/20/17 22:33 Blood Blood Culture Pending Received Recent Pertinent Medications PCP started levaquin Visited Ed for evaluation 04/17/16, received 1 dose of unasyn, discharged to continue levaquin and added clindamycin Assessment & Plan Assessment: 41 yo with poorly controlled DM presenting for worsening cellullitis previous abx include levaquin/clindamycin/ 1 dose of unasyn Imaging not suggestive of osteo per provider notes Stated zosyn/vancomycin empirically for 48 hours for cellulitis Plan: Loading dose: Received 1 gm followed by 2250 mg to complete load (~23 mg/kg) Starting 1500 mg (11 mg/kg) IV every 8 hours. - Population pk: SCr 0.74, used age maximum CrCl of 116 ml/min, ke 0.101, T1/ 2 ~6.8 -used lower mg/kg dosing due to risk of accumulation in patients with BMI >35 Goal trough level estimate: between 15-20 mcg/mL. Trough has been ordered for 04/22 @ 1130 Zosyn 4.5 gm over 30 minutes then extended infusion q8H ordered for CrCL > 20ml/ min . Pharmacy will continue to follow and will adjust dose/frequency as necessary. Thank you
[2017-04-21] MEDS ORDERED: VANCOMYCIN CONSULT ACTIVE PRN (09:15)
[2017-04-21] MEDS: HEPARIN SOD 5000 UNIT/0.5 ML CARP SQ SCH ×2 (10:03→21:00)
[2017-04-21] MEDS ORDERED: VANCOMYCIN INJ 1,500 MG in SODIUM CHLORIDE 0.9% 500ML 500 ML IV SCH (12:00)
[2017-04-21] MEDS ORDERED: PIPERACILL/TAZOBAC CONSULT ACTIVE PRN (12:30)
[2017-04-21 14:03] VITALS: BMI 37.0
[2017-04-21 15:16] VITALS: BP 131/81; PULSE 72; TEMP 36.8; O2SAT 97
[2017-04-21] MEDS: KETOROLAC TROMETHAMINE 15 MG/ML VIAL IV PRN (18:23)
[2017-04-21] MEDS ORDERED: INSULIN GLARGINE SOLOSTAR 100 UNITS/ML 3 ML PEN SC SCH (21:00)
[2017-04-21] MEDS ORDERED: SIMVASTATIN 10 MG TAB PO SCH (21:00)
[2017-04-21 23:41] VITALS: BP 127/81; PULSE 71; TEMP 36.9; O2SAT 98
[2017-04-21 23:45] VITALS: O2SAT 98
--- NOTE | 2017-04-21 23:49 | EMERGENCY ROOM VISIT NOTE ---
History First contact with patient: 22:13 Chief Complaint: INFECTION Stated Complaint: CELLULITIS,FAILURE OF OUTPATIENT TREATMENT Nursing Triage Summary: Patient reports redness and swelling to right hand. Was here and given IV antibiotics, sent home with PO antibiotics but redness and swelling increased up into right wrist. History of Present Illness The patient is a 41 year old male who presents to the Emergency Room with complaints of worsening pain and swelling to his right hand. The patient was seen roughly 3 days ago in this department and diagnosed with a right hand cellulitis. The patient states that he initially contacted his primary care physician with this complaint, and was started on oral Levaquin. At his visit a few days ago he was given clindamycin. The patient has evidently been taking his antibiotics as prescribed, and still complains of persistently worsening symptoms. He states that he is now having streaking of the infection up his arm. He has had intermittent fevers of chills. The patient is an uncontrolled diabetic and admits that his last hemoglobin A1c was greater than 11. He is having difficulty controlling his sugars with the infection. He rates his pain a 10/10 that worsens with certain movement. Review of Systems More than 10 systems were reviewed and otherwise negative with the exception of history of present illness. 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) Current/Historical Medications Scheduled Clindamycin Hcl (Cleocin), 300 MG PO QID Insulin Glargine (Toujeo Solostar), 40 UNITS SC QPM Lamotrigine (Lamictal), 150 MG PO QAM Levofloxacin (Levaquin), 1 TAB PO DAILY Lisinopril (Lisinopril), 5 MG PO DAILY Metformin Hcl (Glucophage Ext Rel), 1,000 MG PO BID Sertraline (Zoloft), 50 MG PO QAM Simvastatin (Zocor), 10 MG PO HS Physical Exam Vital Signs Date Time Temp Pulse Resp B/P (MAP) Pulse Ox O2 Delivery O2 Flow Rate FiO2 04/21/17 01:40 87 18 113/74 96 Room Air 04/20/17 22:08 36.7 103 19 149/101 96 Room Air Physical Exam VITALS: Vitals are noted on the nurse's note and reviewed by myself. Vital signs with slightly elevated blood pressure GENERAL: Well-developed, well-nourished, white male who appears minimally ill but nontoxic HEAD: Normocephalic atraumatic. HEART: Regular rate and rhythm without murmurs gallops or rubs. LUNGS: Clear to auscultation bilaterally without wheezes, rales or rhonchi. No retractions or accessory muscle use. MUSCULOSKELETAL: There is an area of right hand cellulitis extending essentially from the fourth and fifth metacarpal phalangeal joints into the proximal hand of the right. There is a small amount of lymphangitic streaking into the right posterior forearm without obvious palpable cord. The patient is able to make a fist but draw machine operator strength is 3/5. He has difficulty touching his fifth finger to his thumb. The hand is distinctly edematous, roughly 50% larger than the left hand in this same area. He does have full sensation to the distal fingers. There is no obvious fluctuance or drainable abscess on examination. NEURO: Patient was alert and oriented to person place and time. CN II through XII grossly intact. Medical Decision & Procedures ER Provider Diagnostic Interpretation: R HAND MIN 3 VIEWS ROUTINE CLINICAL HISTORY: right hand infx trauma. Pain. COMPARISON: 04/17/2017 DISCUSSION: Soft tissue edema is similar compared to the prior study. No well-defined acute bony abnormality. Cortical margins are intact. IMPRESSION: Persistent soft tissue edema. No acute bony abnormality. Laboratory Results 04/20/17 23:00 Red Blood Count 4.46, Mean Corpuscular Volume 86.8, Mean Corpuscular Hemoglobin 30.5, Mean Corpuscular Hemoglobin Concent 35.1, Mean Platelet Volume 10.3, Neutrophils (%) (Auto) 58.0, Lymphocytes (%) (Auto) 30.9, Monocytes (%) (Auto) 9.4, Eosinophils (%) (Auto) 0.9, Basophils (%) (Auto) 0.3, Neutrophils # (Auto) 3.78, Lymphocytes # (Auto) 2.01, Monocytes # (Auto) 0.61, Eosinophils # (Auto) 0.06, Basophils # (Auto) 0.02 04/20/17 23:00 Test 04/20/17 23:00 04/20/17 23:02 White Blood Count 6.51 K/uL (4.8-10.8) Red Blood Count 4.46 M/uL (4.7-6.1) Hemoglobin 13.6 g/dL (14.0-18.0) Hematocrit 38.7 % (42-52) Mean Corpuscular Volume 86.8 fL (80-100) Mean Corpuscular Hemoglobin 30.5 pg (25-34) Mean Corpuscular Hemoglobin Concent 35.1 g/dl (32-36) Platelet Count 196 K/uL (130-400) Mean Platelet Volume 10.3 fL (7.4-10.4) Neutrophils (%) (Auto) 58.0 % Lymphocytes (%) (Auto) 30.9 % Monocytes (%) (Auto) 9.4 % Eosinophils (%) (Auto) 0.9 % Basophils (%) (Auto) 0.3 % Neutrophils # (Auto) 3.78 K/uL (1.4-6.5) Lymphocytes # (Auto) 2.01 K/uL (1.2-3.4) Monocytes # (Auto) 0.61 K/uL (0.11-0.59) Eosinophils # (Auto) 0.06 K/uL (0-0.5) Basophils # (Auto) 0.02 K/uL (0-0.2) RDW Standard Deviation 39.2 fL (36.4-46.3) RDW Coefficient of Variation 12.3 % (11.5-14.5) Immature Granulocyte % (Auto) 0.5 % Immature Granulocyte # (Auto) 0.03 K/uL (0.00-0.02) Anion Gap 8.0 mmol/L (3-11) Est Creatinine Clear Calc Drug Dose 198.0 ml/min Estimated GFR () 134.7 Estimated GFR (Non- 116.2 BUN/Creatinine Ratio 19.0 (10-20) Uric Acid 3.0 mg/dl (2.6-7.2) Calcium Level 8.9 mg/dl (8.5-10.1) Total Bilirubin 0.2 mg/dl (0.2-1) Aspartate Amino Transf (AST/SGOT) 8 U/L (15-37) Alanine Aminotransferase (ALT/SGPT) 26 U/L (12-78) Alkaline Phosphatase 58 U/L (45-117) C-Reactive Protein 0.61 mg/dl (0-0.29) Total Protein 7.1 gm/dl (6.4-8.2) Albumin 3.3 gm/dl (3.4-5.0) Globulin 3.8 gm/dl (2.5-4.0) Albumin/Globulin Ratio 0.9 (0.9-2) Beta-Hydroxybutyric Acid 0.68 mg/dL (0.2-2.81) Bedside Lactic Acid Venous 1.65 mmol/L (0.90-1.70) Medications Administered Medications (Trade) Dose Ordered Sig/Zenia Route Start Time Stop Time Status Last Admin Dose Admin Sodium Chloride 1,000 ml @ 999 mls/hr Q1H1M ONCE IV 04/20/17 22:45 04/20/17 23:45 DC 04/20/17 23:11 999 MLS/HR Vancomycin HCl 1000 mg/Sodium Chloride 270 ml @ 125 mls/hr NOW STAT IV 04/20/17 22:33 04/21/17 00:42 DC 04/20/17 23:11 125 MLS/HR Hydromorphone HCl (Dilaudid Inj) 0.5 mg NOW STAT IV 04/20/17 23:28 04/20/17 23:29 DC 04/20/17 23:31 0.5 MG Insulin Aspart (novoLOG ASPART) 10 units NOW ONCE SC 04/21/17 01:30 04/21/17 02:47 DC 04/21/17 03:06 10 UNITS Acetaminophen 650 mg/Empty Bag 65 ml @ 260 mls/hr Q6H PRN IV 04/21/17 01:30 04/21/17 17:19 DC 04/21/17 07:10 260 MLS/HR ED Course Physical exam and history were performed. Nursing notes, EMR, and Medication List were personally reviewed. Patient appears to have cellulitis of his right hand on examination. IV access was established and labs were obtained. The patient is evidently failed outpatient Levaquin and clindamycin. He is diabetic. He was given IV fluids and vancomycin here in the department. X-ray was performed. The patient's blood work is as above and was reviewed. He does not have a grossly elevated white blood cell count, significant anemia or gross electrolyte imbalance. His glucose is elevated at greater than 300. Lactic acid is negative with cultures pending. Uric acid is negative. X-ray does not show evidence of osteomyelitis. I have concern is the patient is diabetic and appears to be failing outpatient oral antibiotics. I discussed the case with the on-call hospitalist who agreed to evaluate the patient here in the department. Please see their dictation for further patient course, plan, and disposition. The chart was completed utilizing [employer] Speech Voice Recognition Software. Grammatical errors, random word insertions, pronoun errors, and incomplete sentences are an occasional consequence of this system due to software limitations, ambient noise, and hardware issues. Any formal questions or concerns about the content, text, or information contained within the body of this dictation should be directly addressed to the provider for clarification. . Medical Decision Differential diagnosis: Etiologies such as cellulitis, abscess, MRSA infection, DVT, necrotizing fasciitis, dermatitis, drug eruption, as well as others were entertained.. Impression Primary Impression: Cellulitis Additional Impressions: Failure of outpatient treatment Diabetes Departure Information Dispostion Still a Patient Condition FAIR Referrals No Doctor, Assigned (PCP) Forms WORK / SCHOOL INSTRUCTIONS, HOME CARE DOCUMENTATION FORM, IMPORTANT VISIT INFORMATION Patient Instructions [facility] Problem Qualifiers
[2017-04-22] MEDS: KETOROLAC TROMETHAMINE 15 MG/ML VIAL IV PRN ×3 (00:33→17:56)
[2017-04-22 05:34] LABS: BASO % 0.3 %; BASO ABS # 0.02 K/uL (0-0.2); EOS % 2.5 %; EOS ABS # 0.15 K/uL (0-0.5); HEMATOCRIT 37.6 % (42-52); HEMOGLOBIN 13.3 g/dL (14.0-18.0); IG# 0.02 K/uL (0.00-0.02); LYMPH % 43.7 %; LYMPH ABS # 2.65 K/uL (1.2-3.4); MEAN CORPUSCULAR HEMOGLOBIN 30.4 pg (25-34); MEAN CORPUSCULAR HGB CONC 35.4 g/dl (32-36); MEAN PLATELET VOLUME 10.3 fL (7.4-10.4); MONO % 8.7 %; MONO ABS # 0.53 K/uL (0.11-0.59); NEUT % 44.5 %; PLATELET COUNT 186 K/uL (130-400); RED CELL DISTRIBUTION WIDTH CV 12.2 % (11.5-14.5); RED CELL DISTRIBUTION WIDTH SD 38.5 fL (36.4-46.3); WHITE BLOOD COUNT 6.07 K/uL (4.8-10.8)
[2017-04-22 06:02] LABS: CALCIUM 8.2 mg/dl (8.5-10.1); CREATININE 0.76 mg/dl (0.60-1.40); POTASSIUM 3.9 mmol/L (3.5-5.1)
[2017-04-22 07:00] LABS: HEMOGLOBIN A1C 11.5 % (4.5-5.6)
[2017-04-22 07:12] VITALS: BP 99/59; PULSE 59; TEMP 36.7; O2SAT 99
--- NOTE | 2017-04-22 07:17 | Family Medicine Progress Note ---
Progress Note Date of Service Apr 22, 2017. Objective Vital Signs Date Time Temp Pulse Resp B/P (MAP) Pulse Ox O2 Delivery O2 Flow Rate FiO2 04/22/17 07:12 36.7 59 16 99/59 (72) 99 Room Air 04/21/17 23:45 98 Room Air 04/21/17 23:41 36.9 71 16 127/81 (96) 98 Room Air 04/21/17 16:00 Room Air 04/21/17 15:16 36.8 72 18 131/81 (98) 97 Room Air 04/21/17 08:10 97 Room Air 04/21/17 07:19 36.7 70 17 128/82 (97) 97 Room Air Resident Tracking Resident Involvement: Resident Care Provided Care Provided: Adult Hospital Medicine
[2017-04-22] MEDS: PIPERACILL/TAZOBAC IV 4.5 GM in DEXTROSE 5% 100ML IV SCH ×2 (08:51→15:26)
[2017-04-22] MEDS: SERTRALINE HCL 50 MG TAB PO SCH (08:52)
[2017-04-22] MEDS: LISINOPRIL 5 MG TAB PO SCH (08:52)
[2017-04-22] MEDS: INSULIN ASPART 100 UNITS/ML 3 ML PEN SC SCH ×3 (08:56→18:50)
[2017-04-22] MEDS: HYDROCODONE/ACETAMI 10/325 TAB PO PRN ×2 (08:57→15:27)
[2017-04-22] MEDS: HEPARIN SOD 5000 UNIT/0.5 ML CARP SQ SCH (08:58)
[2017-04-22] MEDS ORDERED: IBUP-1428 PO (09:45)
[2017-04-22] MEDS ORDERED: AMOX875T PO (09:51)
--- NOTE | 2017-04-22 10:09 | Discharge Instructions ---
Discharge Instructions Date of Service Apr 22, 2017. Admission Reason for Admission: Cellulitis,Failure Of Outpatient Treatment Discharge Discharge Diagnosis / Problem: Cellulitis of right hand, uncontrolled diabetes Discharge Goals Goal(s): Decrease discomfort, Improve disease control, Therapeutic intervention Activity Recommendations Activity Limitations: resume your previous activity . Instructions / Follow-Up Instructions / Follow-Up You were admitted for cellulitis of the right hand with uncontrolled diabetes as a likely contributor. You were treated with antibiotics and the redness, pain, tingling of the hand seemed to improve. On discharge, you have been prescribed Augmentin, to be taken twice daily (ex. 8am and 8pm) for 12 days (total course of 14 days). Please complete all of the medication, even if your hand feels completely back to normal. High dose ibuprofen 800mg can be taken every 8 hours, as needed for pain. Follow up with your PCP by the end of this week for a check of the hand. Please seek medical care immediately if redness, swelling, pain, tingling, fever or any new concerns arise. Additionally, while in hospital, you received glucose education with recommended changes that you thought could fit your lifestyle. On discharge, please take the 2 doses of 70/30 mix daily, with glucose checks as discussed. Follow up with your PCP by the end of this week and further as per your PCP's recommendation to make sure your sugar control has improved. 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 Given the HbA1c of 11.5%, it was thought your metformin was not as effective as would be ideal. There was question as to whether or not your diabetes is type 2 versus adult-onset type 1. This does not global climate change analyst for you, but the use of metformin can be discussed further with your PCP. Current Hospital Diet Patient's current hospital diet: Diabetes Type 2 Diet Discharge Diet Recommended Diet: Diabetes Type 2 Diet Pending Studies Studies pending at discharge: no Laboratory Results Hemoglobin A1c Test 04/22/17 05:17 Range/Units Estimated Average Glucose 283 mg/dl Hemoglobin A1c 11.5 H 4.5-5.6 % Lipid Panel Test 04/22/17 05:17 Range/Units Triglycerides Level 108 0-150 mg/dl Cholesterol Level 123 0-200 mg/dl HDL Cholesterol 38 mg/dl Cholesterol/HDL Ratio 3.2 LDL Cholesterol, Calculated 63 mg/dl Medical Emergencies . Who to Call and When: Medical Emergencies: If at any time you feel your situation is an emergency, please call 911 immediately. . Non-Emergent Contact Non-Emergency issues call your: Primary Care Provider . . "Provider Documentation" section prepared by Layla Arceo. . VTE Core Measure Inpt VTE Proph given/why not?: Unfractionated heparin SQ Resident Tracking Resident Involvement: Resident Care Provided Care Provided: Adult Hospital Medicine
[2017-04-22] MEDS ORDERED: VANCOMYCIN TROUGH ONE (11:30)
--- NOTE | 2017-04-22 11:32 | Discharge Summary ---
Discharge Summary Date of Service Apr 22, 2017. Discharge Summary Admission Date: Apr 21, 2017 at 01:44 Discharge Date: Apr 22, 2017 Discharge Disposition: Home Principal Diagnosis: Cellulitis of right hand Problems/Secondary Diagnoses: Uncontrolled diabetes Immunizations: Have You Had Influenza Vaccine: Unknown History of Tetanus Vaccine?: Unknown History of Pneumococcal: Unknown History of Hepatitis B Vaccine: Unknown Medication Reconciliation New Medications: Amoxicillin & Pot Clavulanate (Augmentin 875-125 mg) 1 Tab Tab 1 TAB PO BID for 12 Days, #24 TAB Ibuprofen (Motrin) 800 Mg Tab 800 MG PO Q8H PRN for Pain for 5 Days, #15 TAB Insulin Aspart 70/30 (Novolog Mix 70/30) Susp 0 SC BID for 30 Days, BTL Continued Medications: Lamotrigine (Lamictal) 150 Mg Tab 150 MG PO QAM, TAB Lisinopril (Lisinopril) 5 Mg Tab 5 MG PO DAILY Sertraline (Zoloft) 50 Mg Tab 50 MG PO QAM, TAB Simvastatin (Zocor) 10 Mg Tab 10 MG PO HS, TAB Discontinued Medications: Clindamycin Hcl (Cleocin) 300 Mg Cap 300 MG PO QID for 10 Days, #40 CAP Insulin Glargine (Toujeo Solostar) 300 Unit/Ml Inj 40 UNITS SC QPM Levofloxacin (Levaquin) Unknown Strength Tab 1 TAB PO DAILY for 7 Days, TAB TAKE FOR 10 DAYS Metformin Hcl (Glucophage Ext Rel) 1,000 Mg Tab 1000 MG PO BID, TAB Discharge Exam Patient well, denies acute overnight events. States improving tenderness and tingling in the 4th and 5th knuckles of the right hand as well improved pain in the right wrist. No new redness or any discharge. Ulnar tingling largely resolved. He otherwise denies fevers/chills, headaches, CP, palpitations, dyspnea, abdominal pain, hand swelling or rashes. He is tolerating diet and ambulating without issue. ROS is unremarkable except as noted above. Patient keen for home. Physical Exam: General Appearance: WD/WN, no apparent distress Eyes: normal inspection ENT: hearing grossly normal Neck: supple Respiratory/Chest: lungs clear, normal breath sounds, no respiratory distress, no accessory muscle use Cardiovascular: regular rate, rhythm, no murmur Abdomen / GI: normal bowel sounds, non tender, soft Extremities: no calf tenderness, normal capillary refill, no pedal edema Neurologic/Psychiatric: no motor/sensory deficits, alert, oriented x 3 Skin: normal color, warm/dry, no rash, + pertinent finding (Scabs over R 4th and 5th MCP, no erythema, improved swelling) Hospital Course 41 year old male with a h/o poorly controlled DM here for failure of outpt mx of cellulitis of right hand Cellulitis of right hand/ wrist- possible gout? vs infectious process - CXR shows no evidence of osteomyelitis. Uric acid WNL. Blood cx neg. - Discharged with 12 days of Augmentin (14 day course total) - Pain control with ibuprofen 800mg TID PRN x 5 days - Follow up with PCP by end of this week for a check of the hand or sooner if fevers, redness, swelling, pain, tingling, or any new concerns arise. Diarrhea/ new onset after abx - c diff pending collection - patient has not had any BM since admission, thus low suspicion for c.diff DMII, poorly controlled - ?query late-onset autoimmune diabetes - adult onset. HBA1C 11.5% - DM education consulted. Plans to discontinue metformin and Lantus 40 units qHS - patient non compliant due to financial reasons and lifestyle. Questionable efficacy of metformin given HbA1c elevation. Query whether or not this is diabetes mellitus type 2 versus adult-onset type 1. - On discharge, advised for 2 doses of 70/30 mix daily, with glucose checks pre lunch and dinner. - Follow up with your PCP by the end of this week and further as per your PCP's recommendation to make sure your sugar control has improved Hyperlipidemia - Fasting lipid panel WNL - Continue Simvastatin 10 mg daily HTN - Continue Lisinopril 5 mg daily Bipolar disorder - Continue Zoloft 50 mg and lamotrigine 150 gm daily Full code Total Time Spent: Less than 30 minutes This includes examination of the patient, discharge planning, medication reconciliation, and communication with other providers. Discharge Instructions Please refer to the electronic Patient Visit Report (Discharge Instructions) for additional information. Additional Copies To Matthias Gaytan PA-C Resident Tracking Resident Involvement: Resident Care Provided Care Provided: Adult [facility] Medicine Reviewed: Pt Seen/Exam by Me History Pt feels much improved today. Redness has not returned and swelling, tingling/ pain is resolved. No fevers. Pt is happy with appearance of the hand. Pt is tolerating PO without issue. No chest pain or SOB. Agree with HPI/ROS as noted by resident General Appearance: WD/WN, no apparent distress Respiratory: normal breath sounds, no respiratory distress Cardiovascular: normal peripheral pulses, regular rate, rhythm Gastrointestinal: non tender, soft Extremities: non-tender, no pedal edema, other (redness is resolved, swelling and TTP resolved) Neurologic/Psychiatric: alert, normal mood/affect, oriented x 3 Skin Characteristics: normal color, warm/dry Assessment/Plan Agree with plan as outlined above R hand cellulitis: improving on vanco/zosyn -> continued to improve on zosyn only Will d/c on augmentin Close f/u with PCP Advised against further manipulation with heated [place] pins as this may have made his infection worse (Seen in ED on 04/17 and clarithromycin added to levaquin. On 04/19 heated a [place] pin and punctured what he describes as a more abscess-type formation that expelled fluid. The next day is when his hand appeared worse leading to repeat ED presentation) No open wound to necessitate wound care at present Blood cx neg DM educator in to see pt Glucometer provided to pt and med changes ?? pt is actually a DM-I vs DM II given young age and presentation of DM onset? ? To discuss ongoing use of metformin with PCP A1c 11.5
[2017-04-22 13:07] VITALS: Ht 190.5 cm; Wt 134.4 kg
[2017-04-22 16:56] VITALS: BP 154/91; PULSE 75; TEMP 36.8; O2SAT 96
[2017-04-22 17:41] VITALS: BP 154/91; PULSE 75; TEMP 36.8; O2SAT 96
[2017-04-22] MEDS ORDERED: NVLGI7030 SC (17:42)
--- NOTE | 2017-04-22 19:16 | Progress Note ---
Progress Note Date of Service Apr 22, 2017. Progress Note Mr. Bulmaro Roa was admitted to [facility] from 04/21/17 to . Please excuse his absences. Your understanding would be appreciated. MD Antony
== END 2017-04-22 19:20 | disposition home or self-care (01) | DRG 603 ==
LOC: C.EDB 22:06 → C.3E 04-21 01:44 → ENRESERV 04-21 02:21
PROVIDERS: ADMIT Hospitalist; ATTEND Family Medicine
DX: L03.113 Cellulitis of right upper limb (principal); E11.9 Type 2 diabetes mellitus without complications; Z91.19 Patient's noncompliance with other medical treatment and regimen; I10 Essential (primary) hypertension; E78.5 Hyperlipidemia, unspecified; F31.9 Bipolar disorder, unspecified; R19.7 Diarrhea, unspecified; Z79.4 Long term (current) use of insulin; Z83.3 Family history of diabetes mellitus; Z82.49 Family history of ischemic heart disease and other diseases of the circulatory system